=== PATIENT | female | born 1965 | race Caucasian/White ===

== ENCOUNTER 2018-05-05 14:53 | Outpatient (CLI) | payer BC | END 2018-05-05 14:54 | disposition home or self-care (01) | LOC: BICMAMMO 14:53 | PROVIDERS: ATTEND Internal Medicine | DX: Z12.31 Encounter for screening mammogram for malignant neoplasm of breast (principal); R92.1 Mammographic calcification found on diagnostic imaging of breast; Z80.3 Family history of malignant neoplasm of breast | CPT/HCPCS: 77063; 77067; 77080 ==

== ENCOUNTER 2018-05-26 07:27 | Outpatient (CLI) | payer BC ==
--- NOTE | 2018-05-26 08:51 | ULT ---
ULTRASOUND RENAL BILATERAL STANDARD: Date: 05/26/18 HISTORY: Microscopic hematuria. COMPARISON: None. TECHNIQUE: Real-time Breen scale and color evaluation of the kidneys and urinary bladder was performed. FINDINGS: Right kidney measures 11.0 x 4.8 x 5.9 cm. Left kidney measures 11.9 x 6.8 x 6.1 cm. Pre-void urinary bladder volume is 190 mL. No renal mass, hydronephrosis, or abnormal calcifications. IMPRESSION: Normal renal exam. POS: CRISTIAN
== END 2018-05-26 07:28 | disposition home or self-care (01) ==
LOC: BICULT 07:27
PROVIDERS: ATTEND Urology
DX: R31.29 Other microscopic hematuria (principal)
CPT/HCPCS: 76770

== ENCOUNTER 2018-11-27 16:26 | Outpatient (CLI) | payer BC ==
--- NOTE | 2018-11-27 16:49 | RAD ---
XR Chest Pa Lat STANDARD HISTORY:Cough for one week. COMPARISON: None. FINDINGS: Heart size and mediastinum are within normal limits. The lungs are clear of infiltrates. No significant bony findings. IMPRESSION: No active intrathoracic disease.
== END 2018-11-27 16:27 | disposition home or self-care (01) ==
LOC: BICRAD 16:26
PROVIDERS: ATTEND Internal Medicine
DX: R05 Cough (principal)
CPT/HCPCS: 71046

== ENCOUNTER 2019-05-18 14:04 | Outpatient (CLI) | payer BC ==
--- NOTE | 2019-05-18 15:00 | RAD ---
Cervical spine 7 views with flexion and extension HISTORY: Neck pain. FINDINGS: Vertebral body heights are maintained. Osteophytosis throughout the vertebral bodies and fa cets. Neural foramina remain free of severe osseous encroachment on the oblique views. Upon extension, there is 2 mm retrolisthesis at the C3-4 and C5-6 levels and 3 mm retrolisthesis at t he C4-5 level. These are reduced on flexion. Gentle reversal of the normal lordotic curvature. Disc space narrowing at the C4-5, C5-6, and C6-7 le vels. Osteophytosis throughout the vertebral bodies. IMPRESSION: Osseous degenerative changes, including translational motion upon extension, as detailed above.
--- NOTE | 2019-05-18 15:03 | RAD ---
Lumbar spine 2 views HISTORY: Low back pain. Right hip radiculopathy. FINDINGS: Upright PA and lateral views. There are 5 lumbar type vertebrae. Pedicles are intact. Incom plete posterior fusion at the L5 level. Osteophytosis throughout the vertebral bodies and facets. Disc space narrowing at the L4-5 level. Vertebral body heights and alignment are maintained. Pars int erarticularis are not well visualized, but possible pars defects at the lumbosacral junction. IMPRESSION: Osseous degenerative changes. No acute osseous abnormalities are demonstrated.
--- NOTE | 2019-05-18 15:08 | RAD ---
Right hip 2 views HISTORY: Right hip pain. Arthritis. FINDINGS: Joint spaces are preserved. Femoral head contour is maintained. No acute fracture, or aggre ssive osseous erosions. IMPRESSION: No acute osseous abnormalities are demonstrated.
== END 2019-05-18 14:05 | disposition home or self-care (01) ==
LOC: BICRAD 14:04
PROVIDERS: ATTEND Internal Medicine Rheumatology
DX: M25.551 Pain in right hip (principal); M45.9 Ankylosing spondylitis of unspecified sites in spine; M46.1 Sacroiliitis, not elsewhere classified; M47.816 Spondylosis without myelopathy or radiculopathy, lumbar region; M47.812 Spondylosis without myelopathy or radiculopathy, cervical region
CPT/HCPCS: 72052; 72100

== ENCOUNTER 2019-07-02 13:35 | Outpatient (CLI) | payer BC ==
--- NOTE | 2019-07-02 14:48 | MRI ---
MRI CERVICAL SPINE WITHOUT CONTRAST: HISTORY: Cervical disc degeneration. Neck pain. COMPARISON: None. FINDINGS: Appropriate T1 marrow signal intensity of the cervical vertebrae. Cervical spine vertebral body heigh t is maintained. There is no fracture. No significant STIR hyperintensity to suggest vertebral body edema or ligamentous injury. Straightening of normal cervical lordosis may be positional. Visualized brain parenchyma, cervicomedullary junction, cervical cord and the upper thoracic cord hav e normal size and signal intensity. Spondylolisthesis: C5-C6: 1.3 mm of retrolisthesis. C2-C3: No significant central canal stenosis or significant neural foraminal narrowing. C3-C4: No significant central canal stenosis or significant neural foraminal narrowing. C4-C5: Central/right paracentral disc osteophyte complex. Mild stenosis along the right aspect of the central spinal canal. Moderate right foraminal narrowing due to uncovertebral hypertrophy. Left neural foramen is patent. C5-C6: Broad-based discussed by complex abuts the thecal sac. Subarachnoid space is maintained. Mild central canal stenosis. Moderate to severe right neural foramina narrowing due to uncovertebral hypertrophy. C6-C7: Broad-based disk osteophyte complex abuts the thecal sac. Mild central canal stenosis. Mild to moderate bilateral neural foraminal narrowing. C7-T1: No significant central canal stenosis or significant neural foraminal narrowing. IMPRESSION: Degenerative changes of the cervical spine as detailed above. Transcribed Date/Time: 07/02/2019 2:54 PM
== END 2019-07-02 13:36 | disposition home or self-care (01) ==
LOC: TBSIIMAG 13:35
PROVIDERS: ATTEND Neurological Surgery
DX: M50.30 Other cervical disc degeneration, unspecified cervical region (principal); M47.812 Spondylosis without myelopathy or radiculopathy, cervical region
CPT/HCPCS: 72141

== ENCOUNTER 2019-07-10 14:28 | Emergency (ER) | payer BC ==
[2019-07-10 15:05] LABS: #Basophils 0.1 thou/uL (0.0-0.2); #Eosinphils 0.1 thou/uL (0.0-0.7); #Lymphocytes 2.2 thou/uL (1.20-3.40); #Monocytes 0.6 thou/uL (0.11-0.59); %Basophils 1.1 % (0.0-1.0); %Eosinophils 0.9 % (0.0-10.0); %Lymphocytes 27.5 % (21.0-51.0); %Neutrophils 62.6 % (42.0-75.0); Hemoglobin 14.4 g/dL (12.0-16.0); Mean Corpuscular HGB CONC 33.5 g/dL (32.0-36.0); Mean Corpuscular Hemoglobin 32.9 pg (27.0-31.0); Mean Corpuscular Volume 98.1 fL (78.0-98.0); Platelet Count 376 thou/uL (130-400); RBC Distribution Width 13.4 % (11.5-14.5); Red Blood Cell (RBC) Count 4.36 mill/uL (4.20-5.40); White Blood Cell (WBC) Count 7.9 thou/uL (4.8-10.8)
[2019-07-10 15:25] LABS: ALT (SGPT) 13 U/L (8-55); AST (SGOT) 15 U/L (5-34); Alkaline Phosphatase 82 U/L (40-110); Anion Gap 10 mmol/L (10-20); BUN (Urea Nitrogen) 13 mg/dL (9.8-20.1); Bilirubin, Total 0.4 mg/dL (0.2-1.2); Calc. Creatinine Clearance 0 mL/min (70-130); Calcium 8.8 mg/dL (7.8-10.44); Carbon Dioxide 27 mmol/L (22-29); Chloride 105 mmol/L (98-107); Estimated GFR-MDRD 59; Globulin 2.6 g/dL (2.4-3.5); Glucose 120 mg/dL (70-105); Potassium 4.5 mmol/L (3.5-5.1); Protein, Total 6.6 g/dL (6.0-8.3); Sodium 137 mmol/L (136-145)
--- NOTE | 2019-07-10 16:00 | CT ---
CT HEAD WITHOUT CONTRAST: INDICATIONS: Syncope. FINDINGS: Ventricles have normal size and position. No evidence of intracranial hemorrhage, mass or infarct. Si nuses and mastoids are clear. IMPRESSION: No acute findings. POS: OFF
[2019-07-10] MEDS ORDERED: Magnesium 2 GM/50 ML BAG (IN WATER) ONE (16:17)
[2019-07-10 17:29] LABS: Bilirubin Negative (Negative); Blood, Urine Negative (Negative); Clarity Clear (Clear); Glucose, Urine (Dipstick) Normal (Negative); Leukocyte Negative Leu/uL (Negative); Nitrite Negative (Negative); Protein, Urine (Dipstick) Negative (Neg-Trace); Urobilinogen Normal mg/dL (Less than 2)
== END 2019-07-10 18:10 | disposition home or self-care (01) ==
LOC: ERS 14:28
DX: R55 Syncope and collapse (principal); G43.909 Migraine, unspecified, not intractable, without status migrainosus; F41.9 Anxiety disorder, unspecified; F32.9 Major depressive disorder, single episode, unspecified; Z79.899 Other long term (current) drug therapy; Z79.51 Long term (current) use of inhaled steroids
CPT/HCPCS: 36415; 70450; 80053; 81003; 84484; 85025; 93005; 96361; 96365; J3475

== ENCOUNTER 2022-02-26 09:26 | Outpatient (CLI) | payer BC | END 2022-02-26 09:27 | disposition home or self-care (01) | LOC: BICMAMMO 09:26 | PROVIDERS: ATTEND Internal Medicine | DX: Z12.31 Encounter for screening mammogram for malignant neoplasm of breast (principal); M81.0 Age-related osteoporosis without current pathological fracture; Z78.0 Asymptomatic menopausal state | CPT/HCPCS: 77063; 77067; 77080 ==